=== PATIENT | male | born 1990 | race Caucasian/White ===

== ENCOUNTER 2024-04-21 19:37 | Inpatient (IN) | payer MEDICAID ==
[~2024-04-21] VITALS: Ht 177.8 cm; Wt 146.7 kg
[2024-04-21 20:26] LABS: BASOPHILS # (AUTO) 0.1 X10'3 (0-0.2); BASOPHILS % (AUTO) 0.7 % (0-1); EOSINOPHILS # (AUTO) 0.2 X10'3 (0-0.9); EOSINOPHILS % (AUTO) 1.1 % (0-6); HEMATOCRIT 39.3 % (42.0-52.0); HEMOGLOBIN 12.8 g/dl (14.0-17.9); LYMPHOCYTES # (AUTO) 2.7 X10'3 (1.1-4.8); LYMPHOCYTES % (AUTO) 16.1 % (21-51); MEAN CORPUSCULAR HEMOGLOBIN 26.7 PG (27.0-31.0); MEAN CORPUSCULAR HGB CONC 32.5 g/dL (33.0-36.5); MEAN CORPUSCULAR VOLUME 82.1 FL (78-98); MEAN PLATELET VOLUME 8.4 FL (7.4-10.4); MONOCYTES # (AUTO) 1.6 X10'3 (0-0.9); MONOCYTES % (AUTO) 9.4 % (2-12); NEUTROPHILS # (AUTO) 12.3 X10'3 (1.8-7.7); NEUTROPHILS % (AUTO) 72.7 % (42-75); PLATELET COUNT 253 X10'3 (140-440); RED BLOOD COUNT 4.78 X10'6 (4.70-6.10); RED CELL DISTRIBUTION WIDTH 15.1 % (11.5-14.5); WHITE BLOOD COUNT 16.9 X10'3 (4.5-11.0)
[2024-04-21 20:36] LABS: ALBUMIN 3.2 G/DL (3.4-5.0); ANION GAP 11 (8-16); BLOOD UREA NITROGEN 16 MG/DL (7-18); BUN/CREATININE RATIO 14.3 (10.0-20.0); CALCIUM 8.2 MG/DL (8.5-10.1); CHLORIDE 100 MMOL/L (99-107); CREATININE 1.12 MG/DL (0.60-1.10); GLUCOSE 172 MG/DL (70-104); POTASSIUM 3.8 MMOL/L (3.5-5.1); SODIUM 137 MMOL/L (135-145); TOTAL CARBON DIOXIDE 26.1 MMOL/L (24-32); eCRCL 98 ML/MIN; eGFR 76 ML/MIN
[2024-04-21] MEDS: CefTRIAXone/D5W-Rocephin 1gm 50 ML IV ONE (22:14)
[2024-04-21] MEDS: dexamethasone sod phosphate 10mg/ml inj IV STA (22:14)
[2024-04-21] MEDS ORDERED: magnesium 4gm in 100ml NS 100 ML IV PRN (22:30)
[2024-04-21] MEDS ORDERED: magnesium Cl slow-release 64mg tablet PO PRN (22:30)
[2024-04-21] MEDS ORDERED: ondansetron/PF 4mg/2ml inj IV PRN (22:30)
[2024-04-21] MEDS ORDERED: magnesium hydroxide 30ml (MOM) UD suspension PO PRN (22:30)
[2024-04-21] MEDS ORDERED: magnesium 2GM in 50ml NS 50 ML IV PRN (22:30)
[2024-04-21] MEDS ORDERED: mag hydrox/Alum hydrox/simeth 30ml oral suspension PO PRN (22:30)
[2024-04-21] MEDS ORDERED: potassium Cl 40MEQ/1/2NS 520ml 520 ML IV PRN (22:30)
[2024-04-21] MEDS ORDERED: potassium Cl 20 mEq SR tablet PO PRN ×2 (22:30)
[2024-04-21] MEDS ORDERED: acetaminophen 325mg tablet PO PRN (22:30)
[2024-04-21] MEDS ORDERED: ipratropium/albuterol 3ml nebule NEB PRN (22:50)
[2024-04-21 23:02] LABS: HEMOGLOBIN A1C 6.2 % (4.5-6.2)
[2024-04-21 23:04] LABS: MAGNESIUM 1.5 MG/DL (1.5-2.4); PHOSPHORUS 3.5 MG/DL (2.3-4.5)
[2024-04-21] MEDS: nicotine 14mg patch - 24hr TD ONE (23:05)
[2024-04-21] MEDS: normal saline 1000ml 1,000 ML IV SCH (23:09)
[2024-04-21] MEDS: vancomycin/NS 1 GM ADD-VANTAGE 250 ML IV ONE (23:09)
[2024-04-21 23:49] VITALS: PULSE 116; RESP 24; O2SAT 93
[2024-04-22] VITALS (13 sets, daily range): BP systolic 132–159; BP diastolic 78–90; PULSE 99–122; RESP 16–27; TEMP 97.7–98.5; O2SAT 92–98
[2024-04-22 01:44] LABS: BILIRUBIN,URINE NEGATIVE (Neg); CLARITY,URINE CLEAR (Clear); COLOR,URINE YELLOW (Yellow); GLUCOSE, URINE 100 mg/dl (Neg); KETONES,URINE NEGATIVE (Neg); LEUKOCYTE ESTERASE ,URINE SMALL (Neg); NITRITES, URINE NEGATIVE (Neg); OCCULT BLOOD,URINE NEGATIVE (Neg); PROTEIN,URINE NEGATIVE (Neg); UROBILINOGEN,URINE 0.2 E.U/dL (0.2-1.0)
[2024-04-22 01:50] LABS: UA COLLECTION TYPE CLN CATCH MIDSTREAM
[2024-04-22 01:59] LABS: BACTERIA,URINE FEW /HPF (Neg); RBC,URINE 0-2 /HPF (0-2)
[2024-04-22 02:00] LABS: MUCUS STRANDS NONE SEEN /LPF (Neg); SQUAMOUS EPITHELIAL CELL,UR FEW /LPF (FEW); TRANSITIONAL EPI CELLS,URINE FEW /HPF; WBC CLUMPS,URINE FEW /HPF (NEGATIVE)
[2024-04-22] MEDS: azithromycin/NS 500mg/250ml 250 ML IV ONE (02:31)
[2024-04-22] MEDS ORDERED: NO HOME MEDS (03:13)
[2024-04-22] MEDS: budesonide 0.5mg/2ml UD nebule IH SCH (08:00)
[2024-04-22] MEDS: ipratropium/albuterol 3ml nebule NEB SCH (08:00)
[2024-04-22] MEDS: methylPREDNISolone sod succ 125mg/2ml vial IV ONE (08:46)
[2024-04-22] MEDS: CefTRIAXone/D5W-Rocephin 1gm 50 ML IV SCH (08:46)
[2024-04-22] MEDS: enoxaparin 30mg/0.3ml syringe SUBCUT SCH (08:47)
[2024-04-22] MEDS: K and/or MAG REPLACEMENT MC SCH (14:00)
[2024-04-22 14:46] LABS: BASOPHILS % (AUTO) 0.2 % (0-1); EOSINOPHILS % (AUTO) 0.1 % (0-6); HEMATOCRIT 42.2 % (42.0-52.0); HEMOGLOBIN 13.5 g/dl (14.0-17.9); LYMPHOCYTES % (AUTO) 11.6 % (21-51); MEAN CORPUSCULAR HEMOGLOBIN 26.6 PG (27.0-31.0); MEAN CORPUSCULAR HGB CONC 31.9 g/dL (33.0-36.5); MEAN CORPUSCULAR VOLUME 83.4 FL (78-98); MEAN PLATELET VOLUME 8.6 FL (7.4-10.4); MONOCYTES # (AUTO) 0.8 X10'3 (0-0.9); MONOCYTES % (AUTO) 4.6 % (2-12); NEUTROPHILS # (AUTO) 14.7 X10'3 (1.8-7.7); NEUTROPHILS % (AUTO) 83.5 % (42-75); PLATELET COUNT 296 X10'3 (140-440); RED BLOOD COUNT 5.06 X10'6 (4.70-6.10); WHITE BLOOD COUNT 17.6 X10'3 (4.5-11.0)
[2024-04-22 14:57] LABS: ALBUMIN 3.3 G/DL (3.4-5.0); ANION GAP 9 (8-16); BLOOD UREA NITROGEN 12 MG/DL (7-18); BUN/CREATININE RATIO 12.2 (10.0-20.0); CALCIUM 9.2 MG/DL (8.5-10.1); CHLORIDE 103 MMOL/L (99-107); CHOL/HDL RATIO 3.6 (0.00-4.99); CHOLESTEROL 155 MG/DL (0-200); CREATININE 0.98 MG/DL (0.60-1.10); GLUCOSE 172 MG/DL (70-104); HDL CHOLESTEROL 43 MG/DL (35-60); LDL CHOLESTEROL 100 MG/DL (50-100); POTASSIUM 4.4 MMOL/L (3.5-5.1); SODIUM 141 MMOL/L (135-145); TOTAL CARBON DIOXIDE 28.6 MMOL/L (24-32); TRIGLYCERIDES 67 MG/DL (20-135); eCRCL 112 ML/MIN; eGFR 89 ML/MIN
[2024-04-22 15:41] LABS: ABG BASE EXCESS 0.6 mmol/L (-2.0-2.0); ABG HCO3 25.7 mmol/L (22.0-26.0); ABG OXYGEN SATURATION 95.3 % (94-97); ABG PCO2 (T) 43.2 mmHg (35.0-48.0); ABG PH (T) 7.393 (7.340-7.440); FCOHb 0.2 % (0.0-3.9); FHHb 4.7 % (0.0-5.0); FLOW 3 L/min; FMetHb 0.2 % (0.0-1.5); FO2Hb 94.9 % (94-97); MODE NASAL CANNULA
[2024-04-22 17:02] LABS: BASOPHILS % (AUTO) 0.1 % (0-1); EOSINOPHILS % (AUTO) 0.2 % (0-6); HEMATOCRIT 41.2 % (42.0-52.0); HEMOGLOBIN 13.3 g/dl (14.0-17.9); LYMPHOCYTES # (AUTO) 2.7 X10'3 (1.1-4.8); LYMPHOCYTES % (AUTO) 15.5 % (21-51); MEAN CORPUSCULAR HEMOGLOBIN 26.9 PG (27.0-31.0); MEAN CORPUSCULAR HGB CONC 32.4 g/dL (33.0-36.5); MEAN CORPUSCULAR VOLUME 83.1 FL (78-98); MEAN PLATELET VOLUME 8.6 FL (7.4-10.4); MONOCYTES # (AUTO) 0.8 X10'3 (0-0.9); MONOCYTES % (AUTO) 4.4 % (2-12); NEUTROPHILS # (AUTO) 14.2 X10'3 (1.8-7.7); NEUTROPHILS % (AUTO) 79.8 % (42-75); PLATELET COUNT 302 X10'3 (140-440); RED BLOOD COUNT 4.96 X10'6 (4.70-6.10); RED CELL DISTRIBUTION WIDTH 15.1 % (11.5-14.5); WHITE BLOOD COUNT 17.8 X10'3 (4.5-11.0)
[2024-04-22 17:24] LABS: ALANINE AMINOTRANSFERASE 38 U/L (12-78); ALBUMIN 3.2 G/DL (3.4-5.0); ALBUMIN/GLOBULIN RATIO 0.6 (1.1-1.5); ALKALINE PHOSPHATASE 117 IU/L (46-116); ASPARTATE AMINO TRANSFERASE 16 U/L (10-37); BILIRUBIN,TOTAL 0.3 MG/DL (0.1-1.0); BLOOD UREA NITROGEN 14 MG/DL (7-18); BUN/CREATININE RATIO 13.9 (10.0-20.0); CALCIUM 9.3 MG/DL (8.5-10.1); CREATININE 1.01 MG/DL (0.60-1.10); GLUCOSE 240 MG/DL (70-104); TOTAL CARBON DIOXIDE 27.7 MMOL/L (24-32); TOTAL PROTEIN 8.2 G/DL (6.4-8.2); eCRCL 108 ML/MIN; eGFR 86 ML/MIN
[2024-04-22 17:36] LABS: ANION GAP 9 (8-16); CHLORIDE 100 MMOL/L (99-107); POTASSIUM 4.3 MMOL/L (3.5-5.1); SODIUM 137 MMOL/L (135-145)
[2024-04-22] MEDS: magnesium 2GM in 50ml NS 50 ML IV ONE (23:12)
[2024-04-23 02:00] VITALS: BP 140/62; PULSE 97; RESP 17; TEMP 97.2; O2SAT 97
[2024-04-23 06:00] VITALS: BP 147/102; PULSE 95; RESP 18; TEMP 97.3; O2SAT 99
[2024-04-23 06:38] LABS: BASOPHILS % (AUTO) 0.1 % (0-1); EOSINOPHILS # (AUTO) 0.1 X10'3 (0-0.9); EOSINOPHILS % (AUTO) 0.3 % (0-6); HEMATOCRIT 39.7 % (42.0-52.0); HEMOGLOBIN 12.9 g/dl (14.0-17.9); LYMPHOCYTES # (AUTO) 3.3 X10'3 (1.1-4.8); LYMPHOCYTES % (AUTO) 16.6 % (21-51); MEAN CORPUSCULAR HEMOGLOBIN 27.1 PG (27.0-31.0); MEAN CORPUSCULAR HGB CONC 32.5 g/dL (33.0-36.5); MEAN CORPUSCULAR VOLUME 83.2 FL (78-98); MEAN PLATELET VOLUME 8.5 FL (7.4-10.4); MONOCYTES # (AUTO) 2.1 X10'3 (0-0.9); MONOCYTES % (AUTO) 10.5 % (2-12); NEUTROPHILS # (AUTO) 14.2 X10'3 (1.8-7.7); NEUTROPHILS % (AUTO) 72.5 % (42-75); PLATELET COUNT 277 X10'3 (140-440); RED BLOOD COUNT 4.77 X10'6 (4.70-6.10); RED CELL DISTRIBUTION WIDTH 14.7 % (11.5-14.5); WHITE BLOOD COUNT 19.6 X10'3 (4.5-11.0)
[2024-04-23 06:43] LABS: ALBUMIN 2.9 G/DL (3.4-5.0); ANION GAP 8 (8-16); BLOOD UREA NITROGEN 14 MG/DL (7-18); BUN/CREATININE RATIO 15.2 (10.0-20.0); CALCIUM 8.3 MG/DL (8.5-10.1); CHLORIDE 101 MMOL/L (99-107); CREATININE 0.92 MG/DL (0.60-1.10); GLUCOSE 228 MG/DL (70-104); POTASSIUM 4.1 MMOL/L (3.5-5.1); SODIUM 139 MMOL/L (135-145); eCRCL 119 ML/MIN; eGFR > 90 ML/MIN
[2024-04-23 07:20] LABS: TOTAL CELLS COUNTED 100
[2024-04-23 07:23] LABS: GIANT PLATELET FEW; LARGE PLATELETS FEW; PLATELET ESTIMATE NORMAL; POLYCHROMASIA FEW; STOMATOCYTES FEW
[2024-04-23 07:39] VITALS: PULSE 94; RESP 16; O2SAT 98
[2024-04-23 07:47] VITALS: PULSE 92; RESP 18
[2024-04-23 08:00] VITALS: RESP 18; O2SAT 99
[2024-04-23 11:00] VITALS: BP 131/71; PULSE 105; RESP 20; TEMP 97.6; O2SAT 93
[2024-04-23] MEDS ORDERED: IPRA3AMP9 NEB (11:35)
[2024-04-23] MEDS ORDERED: NICO-731 TOP (11:35)
[2024-04-23] MEDS ORDERED: ALBU18HF2 IH (11:35)
[2024-04-23] MEDS ORDERED: SERT-432 PO (11:35)
[2024-04-23] MEDS ORDERED: PRED20TA PO (11:36)
[2024-04-23] MEDS ORDERED: LEVO-65 PO (11:41)
== END 2024-04-23 13:05 | disposition home or self-care (01) | DRG 720 ==
LOC: ER 19:37 → ED HOLD 22:41 → PCU 3S 04-22 01:29
PROVIDERS: ADMIT Internal Medicine Critical Care Medicine; ATTEND Internal Medicine
DX: A41.9 Sepsis, unspecified organism (principal); N17.0 Acute kidney failure with tubular necrosis; J18.9 Pneumonia, unspecified organism; F41.9 Anxiety disorder, unspecified; F17.200 Nicotine dependence, unspecified, uncomplicated; E86.0 Dehydration; Z20.822 Contact with and (suspected) exposure to COVID-19; R09.02 Hypoxemia; R73.03 Prediabetes; J21.9 Acute bronchiolitis, unspecified; F15.90 Other stimulant use, unspecified, uncomplicated; G47.9 Sleep disorder, unspecified; Z88.1 Allergy status to other antibiotic agents; Z88.8 Allergy status to other drugs, medicaments and biological substances
CPT/HCPCS: 36415; 36600; 71045; 71250; 80048; 80053; 80061; 81001; 82803; 83036; 83605; 83735; 84100; 84145; 85007; 85018; 85025; 85651; 87040; 87081; 87088; 87502; 87503; 87811; 94640; 94760; 96365; 96375; 99291; A6258; G0378; J0456; J0696; J1100; J1650; J2919; J3370; J3475; J7030

== ENCOUNTER 2024-07-10 20:20 | Emergency (ER) | payer MEDICAID ==
[~2024-07-10] VITALS: Ht 177.8 cm; Wt 139.9 kg
[~2024-07-10 20:20] MED LIST: ALBU18HF2 IH; IPRA3AMP9 NEB; NICO-731 TOP; SERT-432 PO
[2024-07-10] MEDS: cyclobenzaprine 10mg tablet PO ONE (22:52)
[2024-07-10] MEDS: ondansetron/PF 4mg/2ml inj IV ONE (23:03)
[2024-07-10] MEDS: morphine 4 MG/ML inj SYRINge IV ONE (23:04)
[2024-07-10] MEDS: normal saline 1000ml 1,000 ML IV ONE (23:04)
[2024-07-10 23:27] LABS: BASOPHILS # (AUTO) 0.1 X10'3 (0-0.2); EOSINOPHILS # (AUTO) 0.3 X10'3 (0-0.9); EOSINOPHILS % (AUTO) 2.1 % (0-6); HEMATOCRIT 42.7 % (42.0-52.0); HEMOGLOBIN 13.8 g/dl (14.0-17.9); LYMPHOCYTES # (AUTO) 3.2 X10'3 (1.1-4.8); LYMPHOCYTES % (AUTO) 21.8 % (21-51); MEAN CORPUSCULAR HGB CONC 32.4 g/dL (33.0-36.5); MEAN CORPUSCULAR VOLUME 83.1 FL (78-98); MEAN PLATELET VOLUME 8.5 FL (7.4-10.4); MONOCYTES # (AUTO) 1.2 X10'3 (0-0.9); NEUTROPHILS # (AUTO) 9.9 X10'3 (1.8-7.7); NEUTROPHILS % (AUTO) 67.1 % (42-75); PLATELET COUNT 239 X10'3 (140-440); RED BLOOD COUNT 5.14 X10'6 (4.70-6.10); RED CELL DISTRIBUTION WIDTH 15.6 % (11.5-14.5); WHITE BLOOD COUNT 14.8 X10'3 (4.5-11.0)
[2024-07-10 23:31] LABS: APTT 26 SECONDS (22-32); PROTHROMBIN TIME 10.6 SECONDS (9.0-12.0)
[2024-07-10 23:34] LABS: ALANINE AMINOTRANSFERASE 37 U/L (12-78); ALBUMIN 3.8 G/DL (3.4-5.0); ALKALINE PHOSPHATASE 128 IU/L (46-116); ANION GAP 9 (8-16); ASPARTATE AMINO TRANSFERASE 24 U/L (10-37); BILIRUBIN,TOTAL 0.5 MG/DL (0.1-1.0); BLOOD UREA NITROGEN 12 MG/DL (7-18); BUN/CREATININE RATIO 10.3 (10.0-20.0); CALCIUM 9.3 MG/DL (8.5-10.1); CHLORIDE 102 MMOL/L (99-107); CREATININE 1.16 MG/DL (0.60-1.10); GLUCOSE 91 MG/DL (70-104); POTASSIUM 4.2 MMOL/L (3.5-5.1); SODIUM 140 MMOL/L (135-145); TOTAL CARBON DIOXIDE 28.7 MMOL/L (24-32); TOTAL PROTEIN 7.8 G/DL (6.4-8.2); eCRCL 94 ML/MIN; eGFR 73 ML/MIN
[2024-07-10 23:37] LABS: ETHANOL < 10 MG/DL (<10); LIPASE 32 U/L (16-77)
[2024-07-10] MEDS ORDERED: HYDR-3965 PO (23:52)
[2024-07-10] MEDS ORDERED: CYCL-1 PO (23:52)
[2024-07-11 01:01] LABS: PLATELET ESTIMATE NORMAL; TOTAL CELLS COUNTED 100
[2024-07-11 01:03] LABS: SMUDGE CELLS FEW
[2024-07-11 01:06] LABS: POLYCHROMASIA FEW
[2024-07-11 01:07] VITALS: BP 132/75; PULSE 93; RESP 14; TEMP 98.3; O2SAT 98
[2024-07-11 01:07] LABS: STOMATOCYTES FEW
== END 2024-07-11 01:12 | disposition home or self-care (01) ==
LOC: ER 20:20
DX: S20.212A Contusion of left front wall of thorax, initial encounter (principal); R07.9 Chest pain, unspecified; F15.90 Other stimulant use, unspecified, uncomplicated; R51.9 Headache, unspecified; Z88.1 Allergy status to other antibiotic agents; Z88.8 Allergy status to other drugs, medicaments and biological substances; Z79.899 Other long term (current) drug therapy; V89.2XXA Person injured in unspecified motor-vehicle accident, traffic, initial encounter; Y93.89 Activity, other specified; Y92.89 Other specified places as the place of occurrence of the external cause; Y99.8 Other external cause status
CPT/HCPCS: 36415; 70450; 71045; 71250; 72040; 74176; 80053; 80320; 83605; 83690; 84484; 85007; 85025; 85610; 85730; 86885; 86900; 86901; 96361; 96374; 96375; 99291; J2270; J2405; J7030

== ENCOUNTER 2024-07-28 13:06 | Emergency (ER) | payer OTHER, MEDICAID ==
[~2024-07-28] VITALS: Ht 177.8 cm; Wt 143.0 kg
[~2024-07-28 13:06] MED LIST changes: +CYCL-1 PO
[2024-07-28 14:18] VITALS: TEMP 100.6
[2024-07-28] MEDS: ibuprofen tablet 400 MG TABLET PO ONE (15:28)
[2024-07-28] MEDS ORDERED: PRED20TA PO (15:42)
[2024-07-28] MEDS: dexamethasone sod phosphate 10mg/ml inj IM STA (16:10)
[2024-07-28 16:15] VITALS: BP 148/95; PULSE 120; RESP 19; O2SAT 97
== END 2024-07-28 16:16 | disposition home or self-care (01) ==
LOC: ER 13:06
DX: R07.89 Other chest pain (principal); M94.0 Chondrocostal junction syndrome [Tietze]; R50.9 Fever, unspecified; R53.83 Other fatigue; Z88.1 Allergy status to other antibiotic agents; Z88.8 Allergy status to other drugs, medicaments and biological substances; Z79.899 Other long term (current) drug therapy; F15.90 Other stimulant use, unspecified, uncomplicated; Z20.822 Contact with and (suspected) exposure to COVID-19
CPT/HCPCS: 36415; 71045; 87811; 93005; 96372; 99285; J1100